=== PATIENT | female | born 1990 | race Caucasian/White ===

== ENCOUNTER → 2020-08-14 | Day surgery (SDC) | payer OTHER ==
[~2020-08-14] MED LIST: CELEXA40 MG PO; FISH OIL 1,0001 EACH PO; HYDROCODONE-AC1 EACH PO; IBUPROFEN600 MG PO; OMNICEF 300 MG300 MG PO; PYRIDIUM200 MG PO
[2020-08-14 08:03] LABS: RED BLOOD COUNT 4.21 M/UL (4.00-5.10); WHITE BLOOD COUNT 6.8 K/UL (4.5-11.0)
== END | disposition home or self-care (01) ==
LOC: OR 07:28
PROVIDERS: Obstetrics & Gynecology
PROC: 0UB64ZZ Excision of Left Fallopian Tube, Percutaneous Endoscopic Approach (ICD-10-PCS; principal; 2020-08-14 11:00)
DX: N83.8 Other noninflammatory disorders of ovary, fallopian tube and broad ligament (principal); F41.9 Anxiety disorder, unspecified; F32.9 Major depressive disorder, single episode, unspecified; E66.9 Obesity, unspecified; Z68.34 Body mass index [BMI] 34.0-34.9, adult; Z87.891 Personal history of nicotine dependence; Z79.899 Other long term (current) drug therapy; Z20.822 Contact with and (suspected) exposure to COVID-19
CPT/HCPCS: 36415; 81001; 84703; 85025; C1769; J2001; J2250; J2405; J2704; J2710; J3010; J7120

== ENCOUNTER 2021-08-24 19:37 | Emergency (ER) | payer OTHER ==
[2021-08-24 21:14] LABS: HEMOGLOBIN 13.1 gm/dl (12.3-15.3); RED BLOOD COUNT 4.33 M/UL (4.00-5.10); WHITE BLOOD COUNT 8.9 K/UL (4.5-11.0)
[2021-08-24 22:03] LABS: BUN/CREATININE RATIO 19 (0-10)
== END 2021-08-24 22:20 | disposition home or self-care (01) ==
LOC: ER1 19:37
PROVIDERS: Physician Assistant
DX: R07.9 Chest pain, unspecified (principal); F17.200 Nicotine dependence, unspecified, uncomplicated
CPT/HCPCS: 71045; 80053; 82550; 82553; 84484; 84703; 85025; 85379; 93005; 96374; 99285; J1885